=== PATIENT | male | born 1970 | race Caucasian/White ===

== ENCOUNTER 2018-03-10 13:50 | Emergency (ER) | payer SELFPAY ==
[~2018-03-10] VITALS: Ht 165.1 cm; Wt 97.5 kg
[2018-03-10 13:51] VITALS: BP 149/97
--- NOTE | 2018-03-10 13:54 | NUR ---
Patient BIBA BLS, transferred to bed 5. RN evaluating patient at bedside.
[2018-03-10] MEDS ORDERED: LORazepam 1 MG TAB PO ONE (14:40)
[2018-03-10] MEDS ORDERED: MECLIZINE 25 MG TAB PO ONE (14:40)
[2018-03-10] MEDS ORDERED: NACL 0.9% 1,000 ML IV SCH (14:40)
--- NOTE | 2018-03-10 15:01 | NUR ---
patient ambulated to restroom with steady gait. returned to rm5 without incidient.
[2018-03-10 15:10] LABS: BASOPHILS % (AUTO) 0.5 % (0.0-2.0); EOSINOPHILS % (AUTO) 0.2 % (0.0-4.0); HEMATOCRIT 47.4 % (36-52); HEMOGLOBIN 16.1 g/dL (12.0-18.0); LYMPHOCYTES # (AUTO) 1.2 K/uL (2.0-11.5); LYMPHOCYTES % (AUTO) 17.1 % (20.5-51.1); MEAN CORPUSCULAR HEMOGLOBIN 32 pg (27-31); MEAN CORPUSCULAR HGB CONC 34 g/dL (33-37); MONOCYTES # (AUTO) 0.4 K/uL (0.8-1.0); MONOCYTES % (AUTO) 5.3 % (1.7-9.3); NEUTROPHILS # (AUTO) 5.3 K/uL (1.8-7.7); NEUTROPHILS % (AUTO) 76.9 % (42.2-75.2); PLATELET COUNT (AUTO) 123 K/uL (140-450); RED BLOOD CELL COUNT(AUTO) 5.04 MIL/uL (4.20-6.10); RED CELL DISTRIBUTION WIDTH 13.5 % (11.6-13.7); WHITE BLOOD COUNT (AUTO) 6.9 K/uL (4.8-10.8)
[2018-03-10 15:26] LABS: ALBUMIN 3.8 g/dL (3.4-5.0); ANION GAP 15.9 (8-16); CARBON DIOXIDE 24.9 mmol/L (21-32); POTASSIUM 3.8 mmol/L (3.5-5.1); TOTAL BILIRUBIN 0.7 mg/dL (0.0-1.0)
[2018-03-10 15:29] LABS: APPEARANCE,URINE CLEAR (CLEAR); BILIRUBIN,URINE NEGATIVE (NEGATIVE); BLOOD, URINE NEGATIVE (NEGATIVE); COLOR,URINE YELLOW (YELLOW); LEUKOCYTE ESTERASE ,URINE NEGATIVE (NEGATIVE); NITRITE, URINE NEGATIVE (NEGATIVE); UGLUCOSE NEGATIVE (NEGATIVE)
--- NOTE | 2018-03-10 16:20 | NUR ---
awaiting lab results; patient with no complaints. patient's blood pressure improved. will continue to monitor.
--- NOTE | 2018-03-10 17:09 | NUR ---
awaiting uds results. patient with no complaints. no acute distress. will continue to monitor.
[2018-03-10 17:11] LABS: BARBITURATE, URINE NEG. ng/ml (NEG <=200); BENZODIAZEPINE, URINE NEG. ng/mL (NEG <=200); CANNABINOID, URINE NEG. ng/mL (NEG <=50); COCAINE, URINE NEG. ng/mL (NEG <=300); OPIATE, URINE NEG. ng/mL (NEG <=2000); PHENCYCLIDINE SCREEN,URINE NEG. ng/mL (NEG <=25)
--- NOTE | 2018-03-10 17:31 | NUR ---
Patient discharged with v/s stable. Written and verbal after care instructions given and explained. Patient alert, oriented and verbalized understanding of instructions. Ambulatory with steady gait. All questions addressed prior to discharge. ID band removed. Patient advised to follow up with PMD. Rx of Ativan, Meclizine, and Augmentin given. Patient educated on indication of medication including possible reaction and side effects. Opportunity to ask questions provided and answered.
[2018-03-10 17:34] VITALS: BP 149/94
== END 2018-03-10 17:31 | disposition home or self-care (01) ==
LOC: MED 13:50
DX: E86.0 Dehydration (principal); H81.10 Benign paroxysmal vertigo, unspecified ear; F41.9 Anxiety disorder, unspecified; J32.9 Chronic sinusitis, unspecified
CPT/HCPCS: 36415; 80053; 80305; 81003; 83690; 84484; 85025; 93005; 96360; 99285; J7030; J8597